=== PATIENT | female | born 1995 | race Caucasian/White ===

== ENCOUNTER 2020-03-09 02:05 | Emergency (ER) | payer SELFPAY ==
[~2020-03-09] VITALS: Ht 157.4 cm; Wt 71.7 kg
[2020-03-09 02:29] LABS: BILIRUBIN NEGATIVE; BLOOD NEGATIVE (NEGATIVE); CLARITY TURBID (CLEAR); COLOR YELLOW (YELLOW); GLUCOSE NEGATIVE; KETONE NEGATIVE; LEUKO ESTERASE 2+ (NEGATIVE); NITRITE NEGATIVE (NEGATIVE); PH 6.5 (4.5-8.0); SPECIFIC GRAVITY 1.015 (1.001-1.030)
[2020-03-09 02:36] LABS: BACTERIA 2+; WBC 21-30 wbc/hpf (0-5)
[2020-03-09] MEDS ORDERED: MACROBID100 M1 PO (04:50)
[2020-03-09] MEDS ORDERED: MONISTAT 745 GM V (04:58)
== END 2020-03-09 04:40 | disposition home or self-care (01) ==
LOC: ED 02:05
PROVIDERS: Emergency Medicine Emergency Medical Services
DX: O23.42 Unspecified infection of urinary tract in pregnancy, second trimester (principal); Z3A.26 26 weeks gestation of pregnancy; Z91.040 Latex allergy status

== ENCOUNTER 2021-04-08 16:22 | Emergency (ER) | payer OTHER ==
[~2021-04-08] VITALS: Ht 160 cm; Wt 81.2 kg
[~2021-04-08 16:22] MED LIST: MACROBID100 M1 PO; MONISTAT 745 GM V
[2021-04-08] MEDS ORDERED: DEPO PROVER150 MG/M1 IM (16:33)
[2021-04-08] MEDS ORDERED: BUPROPION ER100 M1 PO (16:34)
[2021-04-08] MEDS ORDERED: AMOXICILLIN500 M2 PO (19:15)
== END 2021-04-08 19:46 | disposition home or self-care (01) ==
LOC: ED 16:22
DX: K08.89 Other specified disorders of teeth and supporting structures (principal); Z91.040 Latex allergy status; Z79.899 Other long term (current) drug therapy

== ENCOUNTER 2021-10-13 19:33 | Emergency (ER) | payer SELFPAY ==
[~2021-10-13] VITALS: Ht 160 cm; Wt 80.7 kg
[~2021-10-13 19:33] MED LIST changes: +AMOXICILLIN500 M2 PO; +BUPROPION ER100 M1 PO; +DEPO PROVER150 MG/M1 IM
[2021-10-13] MEDS ORDERED: PREDNISONE50 MG PO (21:41)
== END 2021-10-13 22:10 | disposition home or self-care (01) ==
LOC: ED 19:33
DX: R21 Rash and other nonspecific skin eruption (principal); Z91.040 Latex allergy status; Z79.899 Other long term (current) drug therapy

== ENCOUNTER 2022-12-19 14:40 | Emergency (ER) | payer OTHER ==
[~2022-12-19] VITALS: Ht 160 cm; Wt 68.0 kg
[~2022-12-19 14:40] MED LIST changes: +PREDNISONE50 MG PO
[2022-12-19 15:24] LABS: BILIRUBIN Negative (Negative); BLOOD Negative (Negative); CLARITY Cloudy (Clear); COLOR Yellow (Yellow); GLUCOSE Negative (Negative); KETONE Trace (Negative); LEUKO ESTERASE Trace (Negative); NITRITE Negative (Negative); PH 5.5 (4.5-8.0); SPECIFIC GRAVITY >= 1.030 (1.001-1.030)
[2022-12-19 15:34] LABS: MUCOUS 2+; RBC 0-2 rbc/hpf (0-2)
[2022-12-19 15:35] LABS: CALCIUM OXALATE CRYSTALS 1+
[2022-12-19] MEDS ORDERED: PYRIDIUM200 M1 PO (16:35)
[2022-12-19] MEDS ORDERED: CEPHALEXIN500 M1 PO (16:35)
== END 2022-12-19 16:48 | disposition home or self-care (01) ==
LOC: ED 14:40
PROVIDERS: Student in an Organized Health Care Education/Training Program
DX: O23.11 Infections of bladder in pregnancy, first trimester (principal); F32.A Depression, unspecified; F41.9 Anxiety disorder, unspecified; Z3A.01 Less than 8 weeks gestation of pregnancy; Z91.040 Latex allergy status